=== PATIENT | female | born 1975 | race Caucasian/White ===

== ENCOUNTER → 2019-10-30 | Outpatient (CLI) | payer OTHER ==
[2016-06-03 12:51] VITALS: BP 110/72
[~2019-10-30] MED LIST: MISO200T PO
--- NOTE | 2019-10-30 17:23 | KCIC ---
LUMBAR SPINE WO CONTRAST History: Spondylosis. Hip pain. Leg pain. Numbness. Technique: Multiplanar, multi sequential MR imaging was performed of the lumbar spine. Comparison: None Findings: Normal vertebral body height and alignment. No fracture. L4 vertebral body hemangioma. No pathologic marrow placing process. Conus terminates at the normal location. No evidence of nerve root clumping. Minimal dilatation of the central canal at the level of the conus. L1-L2: No canal or neuroforaminal narrowing. L2-L3: No canal or neuroforaminal narrowing. Mild facet arthropathy. L3-L4: No canal or neuroforaminal narrowing. Mild facet arthropathy. L4-L5: No canal or neuroforaminal narrowing. Mild right and moderate left facet arthropathy. L5-S1: Disc height loss. Mild facet arthropathy. No canal or neuroforaminal narrowing. Impression: 1. Mild multilevel lumbar stenosis. No high-grade canal or neuroforaminal narrowing. 2. Left L4-L5 facet arthropathy with minimal perifacet edema. Electronically signed by: Yovani Rothman DO (10/30/2019 5:20 PM) [id number]
== END | disposition home or self-care (01) ==
LOC: KCIC MRI 14:06
DX: M47.26 Other spondylosis with radiculopathy, lumbar region (principal); M48.061 Spinal stenosis, lumbar region without neurogenic claudication
CPT/HCPCS: 72148